=== PATIENT | female | born 1940 | race Caucasian/White ===

== ENCOUNTER 2017-05-23 13:07 | Emergency (ER) | payer OTHER, MEDICARE ==
[~2017-05-23] VITALS: Ht 165.1 cm; Wt 106.6 kg
--- OUTSIDE RECORDS SUMMARY | 2017-05-23 13:13 | XMS REPORT | Continuity of Care Document ---
Author Author [facility] Address Unknown Phone Unavailable Allergies There is no data. Medications There is no data. Problems Date Dx Coded Attending Type Code Diagnosis Diagnosed By 12/25/2012 LORETTA RUIZ DO V06.1 TDAP DX Procedures There is no data. Results There is no data. Encounters ACCT No. Visit Date/Time Discharge Status Pt. Type Provider Facility Loc./Unit Complaint [id number] 12/25/2012 17:43:00 12/25/2012 23:59:59 CLS Outpatient LORETTA RUIZ DO
[2017-05-23 14:55] LABS: BILIRUBIN,URINE NEGATIVE (NEGATIVE); KETONES,URINE NEGATIVE (NEGATIVE); LEUKOCYTE ESTERASE ,URINE NEGATIVE (NEGATIVE); NITRITE,URINE POSITIVE (NEGATIVE); PH,URINE 7 (5-9); PROTEIN,URINE NEGATIVE (NEGATIVE); UROBILINOGEN,URINE NORMAL (NORMAL)
[2017-05-23 15:00] LABS: BASOPHILS % (AUTO) 0 % (0-10); EOSINOPHILS # (AUTO) 0.2 10^3/uL (0.0-0.3); EOSINOPHILS % (AUTO) 3 % (0-10); LYMPHOCYTES # (AUTO) 1.5 X 10^3 (1.0-4.0); LYMPHOCYTES % (AUTO) 24 % (12-44); MEAN CORPUSCULAR HEMOGLOBIN 31 PG (25-34); MEAN CORPUSCULAR HGB CONC 32 G/DL (32-36); MEAN CORPUSCULAR VOLUME 97 FL (80-99); MEAN PLATELET VOLUME 11.3 FL (7.4-10.4); MONOCYTES # (AUTO) 0.5 X 10^3 (0.0-1.0); MONOCYTES % (AUTO) 8 % (0-12); NEUTROPHILS % (AUTO) 65 % (42-75); PLATELET COUNT 241 10^3/uL (130-400); RED BLOOD COUNT 4.07 10^6/uL (4.35-5.85); RED CELL DISTRIBUTION WIDTH 13.5 % (10.0-14.5); WHITE BLOOD COUNT 6.1 10^3/uL (4.3-11.0)
[2017-05-23] MEDS ORDERED: IOHEXOL 350 MG/ML 100 ML (OMNIPAQUE 350) VIAL IV ONE (15:00)
[2017-05-23] MEDS ORDERED: NS 100 ML (IVPB) BAG IV ONE (15:00)
[2017-05-23 15:01] LABS: WBC,URINE 0-2 /HPF
[2017-05-23 15:10] LABS: PROTHROMBIN TIME PATIENT 13.2 SEC (12.2-14.7)
[2017-05-23 15:21] LABS: ALANINE AMINOTRANSFERASE 17 U/L (0-55); AMYLASE 34 U/L (25-125); ANION GAP 12 MMOL/L (5-14); ASPARTATE AMINO TRANSFERASE 24 U/L (5-34); BILIRUBIN,TOTAL 0.3 MG/DL (0.1-1.0); BLOOD UREA NITROGEN 17 MG/DL (7-18); BUN/CREATININE RATIO 26; CARBON DIOXIDE 26 MMOL/L (21-32); CHLORIDE 106 MMOL/L (98-107); CREATININE SERUM 0.65 MG/DL (0.60-1.30); GFR ESTIMATED > 60; GLUCOSE 101 MG/DL (70-105); LIPASE 20 U/L (8-78); SODIUM 144 MMOL/L (135-145); TOTAL PROTEIN 7.5 GM/DL (6.4-8.2)
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
[2017-05-23] MEDS ORDERED: ACHD5005 PO (16:38)
[2017-05-23] MEDS ORDERED: NITR-65 PO (16:41)
[2017-05-23 16:48] VITALS: BP 175/80
== END 2017-05-23 16:50 | disposition home or self-care (01) ==
LOC: EDUNIT# 13:07 → ER 13:09
DX: S20.219A Contusion of unspecified front wall of thorax, initial encounter (principal); S93.402A Sprain of unspecified ligament of left ankle, initial encounter; N39.0 Urinary tract infection, site not specified; K21.9 Gastro-esophageal reflux disease without esophagitis; Z96.653 Presence of artificial knee joint, bilateral; Z89.421 Acquired absence of other right toe(s); Z89.422 Acquired absence of other left toe(s); Z86.711 Personal history of pulmonary embolism; Z79.01 Long term (current) use of anticoagulants; Z87.19 Personal history of other diseases of the digestive system; V43.62XA Car passenger injured in collision with other type car in traffic accident, initial encounter
CPT/HCPCS: 36415; 71010; 71260; 72170; 73610; 74177; 80053; 81000; 82150; 83690; 85025; 85610; 85730; 87077; 87088; 87186; 93005; 93041